=== PATIENT | female | born 1950 | race Caucasian/White ===

== ENCOUNTER 2019-12-05 09:27 | Day surgery (SDC) | payer OTHER ==
[~2019-12-05 09:27] MED LIST: LEVSOD75 PO
--- NOTE | 2019-12-05 12:52 | NUR ---
Discharge instructions reviewed with patient. Patient verbalizes understanding. Copy given to patient to take home. RIGHT SIDE LUNG BX SITE C/D/I W/BANDAIDE IN PLACE. PT DENIES PAIN, JUST STATES SHE CAN TELL A LITTLE "TWINGE" WITH DEEP BREATH AT BX SITE BUT IT HAS UNCHANGED DURING RECOVERY STAY. PT HERE. Discharged via wheelchair to private car for ride home.
== END 2019-12-05 12:54 | disposition home or self-care (01) ==
LOC: CT 09:27
DX: C34.31 Malignant neoplasm of lower lobe, right bronchus or lung (principal); F17.210 Nicotine dependence, cigarettes, uncomplicated; I95.89 Other hypotension; L57.0 Actinic keratosis; E06.3 Autoimmune thyroiditis; E03.8 Other specified hypothyroidism; E78.2 Mixed hyperlipidemia; E78.00 Pure hypercholesterolemia, unspecified; Z79.899 Other long term (current) drug therapy
CPT/HCPCS: 32405; 77012; 88305

== ENCOUNTER 2019-12-26 10:24 | Day surgery (SDC) | payer OTHER | END 2019-12-26 13:12 | disposition home or self-care (01) | LOC: ORSCSDS 10:24 | PROC: 0DBH8ZX Excision of Cecum, Via Natural or Artificial Opening Endoscopic, Diagnostic (ICD-10-PCS; principal; 2019-12-26) | PROC: 0DBN8ZX Excision of Sigmoid Colon, Via Natural or Artificial Opening Endoscopic, Diagnostic (ICD-10-PCS; principal; 2019-12-26) | PROC: 0DBL8ZX Excision of Transverse Colon, Via Natural or Artificial Opening Endoscopic, Diagnostic (ICD-10-PCS; principal; 2019-12-26) | DX: R93.5 Abnormal findings on diagnostic imaging of other abdominal regions, including retroperitoneum (principal); D49.0 Neoplasm of unspecified behavior of digestive system; D12.0 Benign neoplasm of cecum; D12.3 Benign neoplasm of transverse colon; D12.5 Benign neoplasm of sigmoid colon; K63.89 Other specified diseases of intestine; K57.30 Diverticulosis of large intestine without perforation or abscess without bleeding; F17.210 Nicotine dependence, cigarettes, uncomplicated; E03.9 Hypothyroidism, unspecified; Z79.899 Other long term (current) drug therapy; Z85.118 Personal history of other malignant neoplasm of bronchus and lung ==

== ENCOUNTER → 2020-07-02 | Outpatient (CLI) | payer OTHER | END | disposition home or self-care (01) | LOC: LAB SHORT 14:33 | DX: C34.90 Malignant neoplasm of unspecified part of unspecified bronchus or lung (principal) | CPT/HCPCS: 83690 ==

== ENCOUNTER 2020-07-26 20:07 | Inpatient (IN) | payer OTHER, MEDICARE ==
[~2020-07-26] VITALS: Ht 157.5 cm; Wt 71.0 kg
[~2020-07-26 20:07] MED LIST changes: +EUTHYROX50 MC1 PO; +ONDA4ODT MM; +Prednisone10 MG PO
[2020-07-26 21:08] LABS: Hematocrit 46.1 % (33.0-51.0); Hemoglobin 15.9 g/dL (11.5-16.0); LYMPHOCYTES ABSOLUTE AUTO 0.94 K/mm3 (0.84-5.20); LYMPHOCYTES PERCENT AUTO 8 % (21-46); MONOCYTES ABSOLUTE AUTO 1.04 K/mm3 (0.16-1.47); MONOCYTES PERCENT AUTO 9 % (4-13); Mean Corpuscular HGB 31.5 pg (26.0-34.0); Mean Corpuscular HGB Conc 34.5 g/dL (31.5-36.5); Mean Corpuscular Volume 92 fL (80-100); Mean Platelet Volume 10.1 fL (9.1-12.4); Platelet Count 300 K/mm3 (150-400); RDW Coefficient Variation 12.8 % (11.7-14.2); RDW Standard Deviation 42.4 fL (35.1-46.3); Red Blood Cell Count 5.04 M/mm3 (3.80-5.20); White Blood Cell Count 11.83 K/mm3 (4.00-11.30)
[2020-07-26 21:09] LABS: BASOPHILS ABSOLUTE AUTO 0.03 K/mm3 (0.00-0.23); BASOPHILS PERCENT AUTO 0 % (0-2); EOSINOPHILS ABSOLUTE AUTO 0.01 K/mm3 (0.00-0.68); EOSINOPHILS PERCENT AUTO 0 % (0-6); IMMATURE GRAN ABSOLUTE AUTO 0.09 K/mm3 (0.00-0.10); IMMATURE GRAN PERCENT AUTO 1 % (0-1); NEUTROPHILS ABSOLUTE AUTO 9.72 K/mm3 (1.96-9.15); NEUTROPHILS PERCENT AUTO 82 % (41-73)
[2020-07-26 21:25] LABS: BAND PERCENT MAN 39 % (0-8); BASOPHILS ABSOLUTE MAN 0.11 K/mm3 (0.00-0.23); BASOPHILS PERCENT MAN 1 % (0-2); EOSINOPHILS PERCENT MAN 0 % (0-6); LYMPHOCYTES ABSOLUTE MAN 0.94 K/mm3 (0.84-5.20); LYMPHOCYTES PERCENT MAN 8 % (21-46); METAMYELOCYTE ABSOLUTE MAN 0.23 K/mm3 (0.00-0.00); METAMYELOCYTE PERCENT MAN 2 % (0-0); MONOCYTES ABSOLUTE MAN 0.82 K/mm3 (0.16-1.47); MONOCYTES PERCENT MAN 7 % (4-13); SEG NEUTROPHILS PERCENT MAN 43 % (41-73); TOTAL CELLS COUNTED 100
[2020-07-26 21:26] LABS: Alanine Aminotransfer (ALT/SGP 29 U/L (12-78); Albumin, Blood 3.2 g/dL (3.4-5.0); Albumin/Globulin Ratio 0.8 (0.8-1.8); Alk Phos 69 U/L (50-136); Anion Gap 6 mmol/L (6-16); Aspartate Aminotrans (AST/SGOT 27 U/L (12-37); Blood Urea Nitrogen 13 mg/dL (8-24); Bun/Creatinine Ratio 14.8 (12.0-20.0); CO2, Blood 26 mmol/L (21-32); Chloride, Blood 93 mmol/L (98-108); Creatinine, Blood 0.88 mg/dL (0.40-1.00); Glomerular Filtration Rate >60 (60-); Glucose, Blood 102 mg/dL (70-99); Potassium, Blood 3.5 mmol/L (3.5-5.5); Sodium, Blood 125 mmol/L (136-145); Total Protein, Blood 7.2 g/dL (6.4-8.2)
[2020-07-26 23:15] LABS: Magnesium, Blood 1.9 mg/dL (1.6-2.4)
[2020-07-26] MEDS ORDERED: antifungal (23:27)
[2020-07-26] MEDS ORDERED: FLUC200 PO (23:29)
[2020-07-26] MEDS ORDERED: IMODIUM A-D2 M1 PO (23:31)
[2020-07-27 01:18] LABS: Source, Urine Clean Catch
[2020-07-27 01:21] LABS: Appearance, Urine Clear (Clear); Blood, Urine 4+ (Neg); Color, Urine Amber (P-Yellow); Glucose Qualitative, Urine Neg (Neg); Ketones, Urine 4+ (Neg); Leukocyte Esterase, Urine 2+ (Neg); Nitrite, Urine Neg (Neg); Protein, Urine 2+ (Neg); Specific Gravity, Urine 1.025 (1.003-1.022); Urobilinogen, Urine 1+ (Normal)
[2020-07-27 01:26] LABS: Bilirubin, Urine 1+ (Neg)
[2020-07-27 01:27] LABS: Bacteria Mod /hpf; Red Blood Cells, Urine 0-2 /hpf (0-2); Squamous Epithelial Cells Few /hpf (Few)
[2020-07-27 01:28] LABS: Amorphous Light (0-Heavy); Mucus Heavy (0-Heavy)
[2020-07-27 03:02] LABS: Adenovirus F 40/41 Not Detected (NOT DETECT); Astrovirus Not Detected (NOT DETECT); Campylobacter Sp Not Detected (NOT DETECT); Cryptosporidium Not Detected (NOT DETECT); Cyclospora Cayetanensis Not Detected (NOT DETECT); E. Coli O157 Not Detected (NOT DETECT); Entamoeba Histolytica Not Detected (NOT DETECT); Enteroaggregative E. coli-EAEC Not Detected (NOT DETECT); Enteropathogenic E. coli-EPEC Not Detected (NOT DETECT); Enterotoxigenic E. coli-ETEC Not Detected (NOT DETECT); Giardia Lamblia Not Detected (NOT DETECT); Norovirus GI/GII Not Detected (NOT DETECT); Plesiomonas Shigelloides Not Detected (NOT DETECT); Rotavirus A Not Detected (NOT DETECT); Salmonella Sp Not Detected (NOT DETECT); Sapovirus Not Detected (NOT DETECT); Shiga Toxin-prod E. coli-STEC Not Detected (NOT DETECT); Shigella/Enteroin E. coli-EIEC Not Detected (NOT DETECT); Vibrio Cholerae Not Detected (NOT DETECT); Vibrio Sp Not Detected (NOT DETECT); Yersinia Enterocolitica Not Detected (NOT DETECT)
[2020-07-27 05:18] LABS: Hemoglobin 15.2 g/dL (11.5-16.0); Mean Corpuscular HGB 31.5 pg (26.0-34.0); Mean Corpuscular HGB Conc 34.5 g/dL (31.5-36.5); Mean Corpuscular Volume 91 fL (80-100); Mean Platelet Volume 10.1 fL (9.1-12.4); Platelet Count 283 K/mm3 (150-400); RDW Coefficient Variation 12.8 % (11.7-14.2); RDW Standard Deviation 42.6 fL (35.1-46.3); Red Blood Cell Count 4.82 M/mm3 (3.80-5.20); White Blood Cell Count 10.47 K/mm3 (4.00-11.30)
--- NOTE | 2020-07-27 05:47 | NUR ---
SHIFT SUMMARY PATIENT ALERT AND ORIENTED. HAD NO COMPLAINTS OF PAIN OR SHORTNESS OF BREATH. MEDICATED PER EMAR FOR DIARRHEA. PATIENT IS ABLE TO SAFELY SELF AMBULATE IN HER ROOM. IV PATENT AND INFUSING. BED IN LOWEST POSITION WITH WHEELS LOCKED. CALL LIGHT WITHIN REACH. REPORT GIVEN TO ONCOMING RN.
[2020-07-27 05:48] LABS: BAND PERCENT MAN 31 % (0-8); BASOPHILS PERCENT MAN 0 % (0-2); EOSINOPHILS PERCENT MAN 1 % (0-6); LYMPHOCYTES ABSOLUTE MAN 0.94 K/mm3 (0.84-5.20); LYMPHOCYTES PERCENT MAN 9 % (21-46); MONOCYTES ABSOLUTE MAN 0.41 K/mm3 (0.16-1.47); MONOCYTES PERCENT MAN 4 % (4-13); SEG NEUTROPHILS PERCENT MAN 55 % (41-73); TOTAL CELLS COUNTED 100
[2020-07-27 05:56] LABS: Alanine Aminotransfer (ALT/SGP 24 U/L (12-78); Albumin/Globulin Ratio 0.9 (0.8-1.8); Alk Phos 62 U/L (50-136); Anion Gap 9 mmol/L (6-16); Aspartate Aminotrans (AST/SGOT 16 U/L (12-37); Bilirubin, Total 0.9 mg/dL (0.1-1.0); Blood Urea Nitrogen 13 mg/dL (8-24); Bun/Creatinine Ratio 17.9 (12.0-20.0); CO2, Blood 23 mmol/L (21-32); Calcium, Blood 7.9 mg/dL (8.5-10.1); Chloride, Blood 93 mmol/L (98-108); Creatinine, Blood 0.73 mg/dL (0.40-1.00); Globulin, Blood 3.5 g/dL (2.2-4.0); Glomerular Filtration Rate >60 (60-); Glucose, Blood 90 mg/dL (70-99); Potassium, Blood 3.4 mmol/L (3.5-5.5); Sodium, Blood 125 mmol/L (136-145); Total Protein, Blood 6.5 g/dL (6.4-8.2)
[2020-07-27] MEDS ORDERED: EUTHYROX50 MC1 PO (06:15)
--- NOTE | 2020-07-27 08:22 | NUR ---
CALLED DR CABRERA PT CURRENTLY HAS A [employer] RUNNING, PT WAS NOT TOLLERATING THE RATE AND SO IT WAS REDUCED TO A TOLLERABLE LEVEL FOR HER. LAST LABS WERE DRAWN AT 0450 THE CURRENT 20MEQ RIDER WAS STARTED AT 0415. ORDER RECIEVED TO HOLD THE NEWLY ORDERED [employer].
[2020-07-27 16:08] LABS: Albumin, Blood 3.2 g/dL (3.4-5.0); Anion Gap 9 mmol/L (6-16); Blood Urea Nitrogen 14 mg/dL (8-24); Bun/Creatinine Ratio 20.7 (12.0-20.0); CO2, Blood 24 mmol/L (21-32); Calcium, Blood 8.2 mg/dL (8.5-10.1); Chloride, Blood 96 mmol/L (98-108); Creatinine, Blood 0.68 mg/dL (0.40-1.00); Glomerular Filtration Rate >60 (60-); Glucose, Blood 110 mg/dL (70-99); Phosphorus, Blood 2.8 mg/dL (2.5-4.9); Potassium, Blood 3.6 mmol/L (3.5-5.5); Sodium, Blood 129 mmol/L (136-145)
--- NOTE | 2020-07-27 19:49 | NUR ---
shift summary- pt alert, oriented and independent in the room. pt has had frequent loose watery stools, clear liquid. Pt started on iv steroids this morning and stated this evening that though she is still going to the bathroom frequently she is going smaller amounts of stool. Pt has denied pain t/o the shift. She did state that she was feeling very irritable with the stools and the steroids. iv in the ac was possitional and causing her to become more aggitated so hot car charger lizeth placed a new one that is not possitional. pt has denied nausea t/o the shift. Passed all on in bedside report to night rn. No s&s of distress noted at the time of shift change.
--- NOTE | 2020-07-28 05:59 | NUR ---
SHIFT SUMMARY PATIENT ALERT AND ORIENTED. HAD NO COMPLAINTS OF PAIN OR SHORTNESS OF BREATH. PATIENT REPORTS THAT SHE HAS HAD NO RELIEF OR SLOWING OF HER DIARRHEA. SHE IS NOT ABLE TO GET MUCH SLEEP A RESULT. IV PATENT AND INFUSING. BED IN LOWEST POSITION WITH WHEELS LOCKED. CALL LIGHT WITHIN REACH. REPORT GIVEN TO ONCOMING RN.
[2020-07-28 06:23] LABS: Albumin, Blood 3.1 g/dL (3.4-5.0); Anion Gap 10 mmol/L (6-16); Blood Urea Nitrogen 15 mg/dL (8-24); Bun/Creatinine Ratio 20.8 (12.0-20.0); CO2, Blood 21 mmol/L (21-32); Calcium, Blood 8.1 mg/dL (8.5-10.1); Chloride, Blood 96 mmol/L (98-108); Creatinine, Blood 0.72 mg/dL (0.40-1.00); Glomerular Filtration Rate >60 (60-); Glucose, Blood 123 mg/dL (70-99); Phosphorus, Blood 2.7 mg/dL (2.5-4.9); Potassium, Blood 3.2 mmol/L (3.5-5.5); Sodium, Blood 127 mmol/L (136-145)
--- NOTE | 2020-07-28 16:54 | NUR ---
SHIFT SUMMMARY PT IS AOX4. PT DENIES PAIN, N/V, SOB. PT HAD ABOUT 10+ DIARRHEA BM'S THIS SHIFT. PT RECEIVING IV HYDRATION. PT IS INDEPENDENT IN ROOM. PT TELE DC'D THIS SHIFT. APPETITE IS GOOD. PT'S VISITED THIS CHANDA. PLAN IS TO MONITOR DIARRHEA AND ELECTROLYTES. PT HAD NO PROCEDURES THIS SHIFT. PT IS IN BED, CALL LIGHT IN REACH, BED IN LOW POSITION.
[2020-07-28 19:07] LABS: Albumin, Blood 2.9 g/dL (3.4-5.0); Anion Gap 8 mmol/L (6-16); Blood Urea Nitrogen 12 mg/dL (8-24); Bun/Creatinine Ratio 17.8 (12.0-20.0); CO2, Blood 21 mmol/L (21-32); Calcium, Blood 8.1 mg/dL (8.5-10.1); Chloride, Blood 102 mmol/L (98-108); Creatinine, Blood 0.68 mg/dL (0.40-1.00); Glomerular Filtration Rate >60 (60-); Glucose, Blood 142 mg/dL (70-99); Phosphorus, Blood 1.6 mg/dL (2.5-4.9); Potassium, Blood 2.9 mmol/L (3.5-5.5); Sodium, Blood 131 mmol/L (136-145)
--- NOTE | 2020-07-29 04:08 | NUR ---
SHIFT SUMMARY ASSUMED CARE OF PT AT 1900. PT IS A/OX4. HEART SOUNDS REGULAR, LUNG SOUNDS HAVE CRACKLES AT THE BASES. PT ON 2L NC. PT IS INDEPENDENT TO BATHROOM. PT RECEIVED LOMOTAL BEFORE BED AND PT REPORTING BEING ABLE TO URINATE WITHOUT HAVING DIARRHEA. NO ACUTE EVENTS. CALL LIGHT IN REACH, BED IN LOWEST POSITON.
[2020-07-29 05:06] LABS: BASOPHILS ABSOLUTE AUTO 0.07 K/mm3 (0.00-0.23); BASOPHILS PERCENT AUTO 1 % (0-2); EOSINOPHILS PERCENT AUTO 0 % (0-6); Hematocrit 40.2 % (33.0-51.0); Hemoglobin 14.1 g/dL (11.5-16.0); IMMATURE GRAN ABSOLUTE AUTO 0.24 K/mm3 (0.00-0.10); IMMATURE GRAN PERCENT AUTO 2 % (0-1); LYMPHOCYTES PERCENT AUTO 7 % (21-46); MONOCYTES ABSOLUTE AUTO 0.97 K/mm3 (0.16-1.47); MONOCYTES PERCENT AUTO 7 % (4-13); Mean Corpuscular HGB 32.1 pg (26.0-34.0); Mean Corpuscular HGB Conc 35.1 g/dL (31.5-36.5); Mean Corpuscular Volume 92 fL (80-100); Mean Platelet Volume 10.5 fL (9.1-12.4); NEUTROPHILS ABSOLUTE AUTO 12.59 K/mm3 (1.96-9.15); NEUTROPHILS PERCENT AUTO 85 % (41-73); Platelet Count 275 K/mm3 (150-400); RDW Coefficient Variation 12.8 % (11.7-14.2); RDW Standard Deviation 42.9 fL (35.1-46.3); Red Blood Cell Count 4.39 M/mm3 (3.80-5.20); White Blood Cell Count 14.87 K/mm3 (4.00-11.30)
[2020-07-29 05:22] LABS: Albumin, Blood 2.8 g/dL (3.4-5.0); Anion Gap 5 mmol/L (6-16); Blood Urea Nitrogen 11 mg/dL (8-24); Bun/Creatinine Ratio 14.8 (12.0-20.0); CO2, Blood 22 mmol/L (21-32); Calcium, Blood 7.8 mg/dL (8.5-10.1); Chloride, Blood 104 mmol/L (98-108); Creatinine, Blood 0.74 mg/dL (0.40-1.00); Glomerular Filtration Rate >60 (60-); Glucose, Blood 113 mg/dL (70-99); Phosphorus, Blood 1.8 mg/dL (2.5-4.9); Potassium, Blood 3.7 mmol/L (3.5-5.5); Sodium, Blood 131 mmol/L (136-145)
--- NOTE | 2020-07-29 18:34 | NUR ---
SHIFT SUMMARY PT HAS HAD NO DIARRHEA THIS SHIFT. PT HAD COMPLAINTS OF INDIGESTION THIS AFTERNOON. TUMS WERE ORDERED PER REQUEST AND PT REPORTS FEELING BETTER AFTER. NO COMPLAINTS OF NAUSEA OR PAIN. PT HAS HAD A GOOD APPETITE MOST OF THE SHIFT. THIS EVENING SHE REPORTS FEELING "BLOATED" AND WASN'T TOO HUNGRY. NO ACUTE CHANGES THIS SHIFT. WILL CONTINUE TO MONITOR AND REPORT TO ONCOMING RN. CALL LIGHT IN REACH.
[2020-07-30 05:14] LABS: BASOPHILS ABSOLUTE AUTO 0.05 K/mm3 (0.00-0.23); BASOPHILS PERCENT AUTO 0 % (0-2); EOSINOPHILS PERCENT AUTO 0 % (0-6); Hematocrit 40.6 % (33.0-51.0); Hemoglobin 14.2 g/dL (11.5-16.0); IMMATURE GRAN ABSOLUTE AUTO 0.23 K/mm3 (0.00-0.10); IMMATURE GRAN PERCENT AUTO 2 % (0-1); LYMPHOCYTES ABSOLUTE AUTO 0.94 K/mm3 (0.84-5.20); LYMPHOCYTES PERCENT AUTO 7 % (21-46); MONOCYTES ABSOLUTE AUTO 1.33 K/mm3 (0.16-1.47); MONOCYTES PERCENT AUTO 10 % (4-13); Mean Corpuscular HGB 31.6 pg (26.0-34.0); Mean Corpuscular Volume 90 fL (80-100); Mean Platelet Volume 10.2 fL (9.1-12.4); NEUTROPHILS ABSOLUTE AUTO 10.43 K/mm3 (1.96-9.15); NEUTROPHILS PERCENT AUTO 80 % (41-73); Platelet Count 282 K/mm3 (150-400); RDW Coefficient Variation 12.6 % (11.7-14.2); RDW Standard Deviation 41.8 fL (35.1-46.3); Red Blood Cell Count 4.49 M/mm3 (3.80-5.20); White Blood Cell Count 12.98 K/mm3 (4.00-11.30)
--- NOTE | 2020-07-30 05:15 | NUR ---
PATIENT SLEPT WELL AFTER RECEIVING HALF DOSE OF SIMETHICONE FOR BLOATING AND GAS. NO BOWEL MOVEMENTS SINCE 07/28 EVENING SHIFT WHEN PATIENT RECEIVED LOMOTIL TO TREAT HER DIARRHEA. NO COMPLAINTS OF PAIN OR DISCOMFORT OTHER THAN THE GAS MENTIONED ABOVE. ИВАН IS FRUSTRATED THAT NOW HER CANCER TREATMENT HAS BEEN POSTPONED FOR A WHILE TO MAKE CERTAIN SHE IS OVER THIS GI AILMENT.
[2020-07-30 05:32] LABS: Anion Gap 5 mmol/L (6-16); Blood Urea Nitrogen 10 mg/dL (8-24); Bun/Creatinine Ratio 14.4 (12.0-20.0); CO2, Blood 26 mmol/L (21-32); Chloride, Blood 99 mmol/L (98-108); Creatinine, Blood 0.69 mg/dL (0.40-1.00); Glomerular Filtration Rate >60 (60-); Glucose, Blood 112 mg/dL (70-99); Potassium, Blood 3.4 mmol/L (3.5-5.5); Sodium, Blood 130 mmol/L (136-145)
--- NOTE | 2020-07-30 12:20 | NUR ---
STS HAVING MULTIPLE SOFT STOOLS BUT DOES NOT WISH ANY IMODIUM
--- NOTE | 2020-07-30 15:17 | NUR ---
TALKED TO DR FERRER ABOUT BRAT DIET. PATIENT DOES NOT LIKE APPLESAUCE AND GETS INDIGECTION FROM BANANAS. OK TO ORDER REG DIET W/DRY TOAST AND WHITE RICE AND NO SPICEY FOODS OR CONDIMENTS.
[2020-07-30 15:59] LABS: Anion Gap 7 mmol/L (6-16); Blood Urea Nitrogen 12 mg/dL (8-24); Bun/Creatinine Ratio 18.3 (12.0-20.0); CO2, Blood 25 mmol/L (21-32); Calcium, Blood 8.1 mg/dL (8.5-10.1); Chloride, Blood 96 mmol/L (98-108); Creatinine, Blood 0.66 mg/dL (0.40-1.00); Glomerular Filtration Rate >60 (60-); Glucose, Blood 127 mg/dL (70-99); Potassium, Blood 3.4 mmol/L (3.5-5.5); Sodium, Blood 128 mmol/L (136-145)
--- NOTE | 2020-07-30 16:04 | NUR ---
ADVISED POTASSIUM 3.4 , NOT CHANGED FROM THIS AM. ORDERED POTASSIUM 60 MG P.O. ONCE.
--- NOTE | 2020-07-30 18:55 | NUR ---
ASSUMED CARE RECEIVED REPORT FROM VICKY Velasquez RN. PT UP TO BATHROOM, IN NO ACUTE DISTRESS. NO ACUTE NEEDS ASSESSED AT THIS TIME. CALL LIGHT IN REACH
--- NOTE | 2020-07-31 05:34 | NUR ---
CLAY PIGEON SETTER SUMMARY PT RESTING, IN NO ACUTE DISTRESS. VS REVIEWED,WNL. PT HAS SLEPT THROUGH MUCH OF THE NIGHT, REPORTED DIARRHEA X1, OTHERWISE PASSED FLATUS. STATES SHE'S FEELING MUCH BETTER THIS AM. NO OTHER ACUTE CHANGES TO REPORT OVERNIGHT. NO ACUTE NEEDS ASSESSED AT THIS TIME. CALL LIGHT, POSSESSIONS IN REACH. WILL CONTINUE TO PROVIDE CARE UNTIL REPORT GIVEN TO ONCOMING RN.
[2020-07-31 06:08] LABS: BASOPHILS ABSOLUTE AUTO 0.06 K/mm3 (0.00-0.23); BASOPHILS PERCENT AUTO 0 % (0-2); EOSINOPHILS ABSOLUTE AUTO 0.01 K/mm3 (0.00-0.68); EOSINOPHILS PERCENT AUTO 0 % (0-6); Hematocrit 43.2 % (33.0-51.0); Hemoglobin 15.7 g/dL (11.5-16.0); IMMATURE GRAN ABSOLUTE AUTO 0.26 K/mm3 (0.00-0.10); IMMATURE GRAN PERCENT AUTO 2 % (0-1); LYMPHOCYTES ABSOLUTE AUTO 1.63 K/mm3 (0.84-5.20); LYMPHOCYTES PERCENT AUTO 11 % (21-46); MONOCYTES ABSOLUTE AUTO 1.72 K/mm3 (0.16-1.47); MONOCYTES PERCENT AUTO 11 % (4-13); Mean Corpuscular HGB 31.8 pg (26.0-34.0); Mean Corpuscular HGB Conc 36.3 g/dL (31.5-36.5); Mean Corpuscular Volume 88 fL (80-100); NEUTROPHILS ABSOLUTE AUTO 11.76 K/mm3 (1.96-9.15); NEUTROPHILS PERCENT AUTO 76 % (41-73); Platelet Count 301 K/mm3 (150-400); RDW Coefficient Variation 12.8 % (11.7-14.2); RDW Standard Deviation 41.2 fL (35.1-46.3); Red Blood Cell Count 4.93 M/mm3 (3.80-5.20); White Blood Cell Count 15.44 K/mm3 (4.00-11.30)
[2020-07-31 06:57] LABS: Albumin, Blood 3.1 g/dL (3.4-5.0); Anion Gap 6 mmol/L (6-16); Blood Urea Nitrogen 10 mg/dL (8-24); Bun/Creatinine Ratio 16.3 (12.0-20.0); CO2, Blood 23 mmol/L (21-32); Calcium, Blood 8.2 mg/dL (8.5-10.1); Chloride, Blood 99 mmol/L (98-108); Creatinine, Blood 0.61 mg/dL (0.40-1.00); Glomerular Filtration Rate >60 (60-); Glucose, Blood 95 mg/dL (70-99); Phosphorus, Blood 1.6 mg/dL (2.5-4.9); Potassium, Blood 4.1 mmol/L (3.5-5.5); Sodium, Blood 128 mmol/L (136-145)
--- NOTE | 2020-07-31 08:22 | NUR ---
DR. BOYD ADVISED NO IV ASSESS W/RN X 2 UNABLE TO OBTAIN ASSESS. PER MD SHE WILL ORDER P.O. NACL. PER PATIENT ALWAYS HAS LOW SODIUM BUT UNABLE TO TELL RN ANY NUMBERS. AWAITING ORDERS
--- NOTE | 2020-07-31 13:33 | NUR ---
sts. feels much better and feels like diarrhea has slowed down. eatting, no nausea. refuses any anti diarrhea meds.
--- NOTE | 2020-07-31 15:18 | NUR ---
ALERT. ORIENTED. INDEPENDENT IN ROOM. NO IV ASSESS. STS HAS NOT HAD ANY MORE DIARRHEA SINCE TAKING LOMOTIL AROUND 0830 THIS AM. HAS REFUSED BANANA FLAKES SHE FEELS THEN "WE WON'T KNOW WHICH MED HELPED." TO CONSULT. NO ACUTE CHANGES. WCTM
--- NOTE | 2020-07-31 19:00 | NUR ---
ASSUMED CARE RECEIVED REPORT FROM VICKY Garrett RN. PT ASLEEP, RESPS E/U. NO ACUTE DISTRESS NOTED. CALL LIGHT AND POSSESSIONS IN REACH.
--- NOTE | 2020-07-31 19:00 | NUR ---
ASSUMED CARE RECEIVED REPORT FROM LARRY KEYES. PT ASLEEP, RESPS E/U. NO ACUTE NEEDS ASSESSED. CALL LIGHT AND POSSESSIONS IN REACH.
[2020-08-01 05:29] LABS: Hematocrit 43.9 % (33.0-51.0); Hemoglobin 15.4 g/dL (11.5-16.0); Mean Corpuscular HGB 31.6 pg (26.0-34.0); Mean Corpuscular HGB Conc 35.1 g/dL (31.5-36.5); Mean Corpuscular Volume 90 fL (80-100); Mean Platelet Volume 10.1 fL (9.1-12.4); Platelet Count 271 K/mm3 (150-400); RDW Coefficient Variation 12.8 % (11.7-14.2); RDW Standard Deviation 42.1 fL (35.1-46.3); Red Blood Cell Count 4.87 M/mm3 (3.80-5.20); White Blood Cell Count 16.16 K/mm3 (4.00-11.30)
--- NOTE | 2020-08-01 05:39 | NUR ---
DITCH REPAIRER SUMMARY PT HAS HAD AN UNEVENTFUL NIGHT. SLEPT THROUGHOUT, VOICED C/O DIARRHEA X1, NO FURTHER COMPLAINTS AT THIS TIME; CONTINUES PASSING FLATUS; BS +. DECLINED PRN MEDICATIONS. TOLERATED BANATROL POWDER WELL. GOOD APPETITE. VS REVIEWED,WNL. PT DENIES NEEDS AT THIS TIME. CALL LIGHT, POSSESSIONS IN REACH, WILL CONTINUE TO PROVIDE CARE NEEDED UNTIL REPORT GIVEN TO ONCOMING RN.
[2020-08-01 05:57] LABS: Albumin, Blood 2.9 g/dL (3.4-5.0); Anion Gap 5 mmol/L (6-16); Blood Urea Nitrogen 16 mg/dL (8-24); CO2, Blood 27 mmol/L (21-32); Calcium, Blood 8.1 mg/dL (8.5-10.1); Chloride, Blood 96 mmol/L (98-108); Creatinine, Blood 0.64 mg/dL (0.40-1.00); Glomerular Filtration Rate >60 (60-); Glucose, Blood 99 mg/dL (70-99); Phosphorus, Blood 2.3 mg/dL (2.5-4.9); Potassium, Blood 3.5 mmol/L (3.5-5.5); Sodium, Blood 128 mmol/L (136-145)
--- NOTE | 2020-08-01 18:13 | NUR ---
THIS RN ASSESSED THE PT. THIS RN REVIEWED & AGREES WITH OCCUPATIONAL HEALTH AND SAFETY MANAGER DOCUEMNTATION FOR THIS SHIFT.
--- NOTE | 2020-08-01 18:42 | NUR ---
SHIFT SUMMARY PATIENT ALERT AND ORIENTATED. PT INDEPENDENT IN ROOM. NO IV ACCESS. PT SEEMS TO UNDERSTAND PLAN OF CARE BETTER. NO ACUTE CHANGES DURING SHIFT. PATIENT HAS HAD 7-8 STOOLS THROUGHOUT THE DAY WITH STOOL FORMING. PT STATES "BECOMING MORE PASTY" APPEARS IN BETTER MOOD. VITAL SIGNS REVIEWED. CALL LIGHT WITHIN REACH.
[2020-08-02 05:54] LABS: BASOPHILS ABSOLUTE AUTO 0.04 K/mm3 (0.00-0.23); BASOPHILS PERCENT AUTO 0 % (0-2); EOSINOPHILS PERCENT AUTO 0 % (0-6); Hematocrit 43.7 % (33.0-51.0); Hemoglobin 15.1 g/dL (11.5-16.0); IMMATURE GRAN ABSOLUTE AUTO 0.28 K/mm3 (0.00-0.10); IMMATURE GRAN PERCENT AUTO 2 % (0-1); LYMPHOCYTES ABSOLUTE AUTO 1.02 K/mm3 (0.84-5.20); LYMPHOCYTES PERCENT AUTO 6 % (21-46); MONOCYTES ABSOLUTE AUTO 0.87 K/mm3 (0.16-1.47); MONOCYTES PERCENT AUTO 5 % (4-13); Mean Corpuscular HGB 31.3 pg (26.0-34.0); Mean Corpuscular HGB Conc 34.6 g/dL (31.5-36.5); Mean Corpuscular Volume 91 fL (80-100); Mean Platelet Volume 10.5 fL (9.1-12.4); NEUTROPHILS ABSOLUTE AUTO 14.17 K/mm3 (1.96-9.15); NEUTROPHILS PERCENT AUTO 87 % (41-73); Platelet Count 285 K/mm3 (150-400); RDW Coefficient Variation 12.8 % (11.7-14.2); RDW Standard Deviation 42.4 fL (35.1-46.3); Red Blood Cell Count 4.83 M/mm3 (3.80-5.20); White Blood Cell Count 16.38 K/mm3 (4.00-11.30)
[2020-08-02 06:26] LABS: Albumin, Blood 2.9 g/dL (3.4-5.0); Anion Gap 7 mmol/L (6-16); Blood Urea Nitrogen 23 mg/dL (8-24); Bun/Creatinine Ratio 33.7 (12.0-20.0); CO2, Blood 27 mmol/L (21-32); Calcium, Blood 8.1 mg/dL (8.5-10.1); Chloride, Blood 96 mmol/L (98-108); Creatinine, Blood 0.68 mg/dL (0.40-1.00); Glomerular Filtration Rate >60 (60-); Glucose, Blood 108 mg/dL (70-99); Phosphorus, Blood 2.9 mg/dL (2.5-4.9); Potassium, Blood 3.6 mmol/L (3.5-5.5); Sodium, Blood 130 mmol/L (136-145)
--- NOTE | 2020-08-02 06:33 | NUR ---
SHIFT SUMMARY PT IS A 70 Y/O FEMALE, ADMITTED FOR DIARRHEA. SHE IS A&O X 4, INDEPENDENT IN THE ROOM. PT REPORTED NO BMS DURING THE NIGHT, AND NO C/O ABD PAIN OR NAUSEA. VITAL SIGNS STABLE. NO ACUTE CHANGES IN PT CONDITION NOTED DURING THE NIGHT. WILL CONTINUE TO MONITOR AND TREAT PER EMAR UNTIL HAND OFF TO DAY SHIFT RN.
[2020-08-02] MEDS ORDERED: DIPATR PO (10:41)
[2020-08-02] MEDS ORDERED: BANATROL PLUS1 EAC1 PO (10:41)
--- NOTE | 2020-08-02 11:36 | NUR ---
DISCHARGE SUMMARY ИВАН LEFT BY WC TO HER RIDE DOWNSTAIRS. SHE IS EAGER TO GO, HASN'T HAD ANY BMS THIS SHIFT OR OVER SPORTS TRAINER. NO PIV PRESENT, MEDS FAXED TO PHARMACY, NO NEED FOR PHYSICAL SCRIPT OF LOMOTIL, I CALLED IT IN TO PHARMACY. STICKER PUT AT FRONT FOR CM TO MAKE F/U WITH DR MENJIVAR. PAPERWORK REVIEWED
== END 2020-08-02 11:43 | disposition home or self-care (01) | DRG 394 ==
LOC: ER 20:07 → MEDS 23:52
PROVIDERS: Emergency Medicine; Family Medicine; Internal Medicine; Physician Assistant; Student in an Organized Health Care Education/Training Program; ADMIT Internal Medicine
DX: K52.1 Toxic gastroenteritis and colitis (principal); C78.7 Secondary malignant neoplasm of liver and intrahepatic bile duct; E87.1 Hypo-osmolality and hyponatremia; C34.90 Malignant neoplasm of unspecified part of unspecified bronchus or lung; B37.0 Candidal stomatitis; R11.2 Nausea with vomiting, unspecified; T45.1X5A Adverse effect of antineoplastic and immunosuppressive drugs, initial encounter; R82.71 Bacteriuria; E86.0 Dehydration; E87.6 Hypokalemia; E03.9 Hypothyroidism, unspecified; R53.1 Weakness; Z90.49 Acquired absence of other specified parts of digestive tract
CPT/HCPCS: 0097U; 36415; 80048; 80053; 80069; 81001; 83690; 83735; 83880; 84132; 85025; 85027; 87077; 87086; 87186; 96372; 96374; 96375; 96376; 99284; 99284-25; A9270; G0378; J1650; J2405; J2930; J3475; J3480; J7030; J7512

== ENCOUNTER 2020-10-18 13:55 | Day surgery (SDC) | payer OTHER ==
[~2020-10-18 13:55] MED LIST changes: +BANATROL PLUS1 EAC1 PO; +DIPATR PO; +FLUC200 PO; +IMODIUM A-D2 M1 PO; +antifungal
[2020-10-18] MEDS ORDERED: OMEP20ER PO (14:29)
[2020-10-18] MEDS ORDERED: SULTRIDS PO (14:29)
[2020-10-18] MEDS ORDERED: POTA10T PO (14:30)
[2020-10-18] MEDS ORDERED: LEVFLO500 PO (14:31)
== END 2020-10-18 15:15 | disposition home or self-care (01) ==
LOC: ATC 13:55
DX: C34.31 Malignant neoplasm of lower lobe, right bronchus or lung (principal); K59.00 Constipation, unspecified; E86.0 Dehydration; C78.7 Secondary malignant neoplasm of liver and intrahepatic bile duct; F17.200 Nicotine dependence, unspecified, uncomplicated; I10 Essential (primary) hypertension
CPT/HCPCS: 96360; J7030

== ENCOUNTER → 2020-10-22 | Outpatient (CLI) | payer OTHER ==
[~2020-10-22] MED LIST changes: +Acetaminophen650 M1 PO; +Colace100 MG PO; +GLIP5 PO; +LEVFLO500 PO; +LIQUITEARS; +OMEP20ER PO; +POTA10T PO; +PRED20 PO; +Potassium Chlo20 ME1 PO; +SODCHL1 PO; +SULFAMETHOXAZO1 EAC1 UD; +SULTRIDS PO; +VISBIOME PROBIOTIC
[2020-10-22 17:32] LABS: Hematocrit 36.7 % (33.0-51.0); Hemoglobin 12.5 g/dL (11.5-16.0); Mean Corpuscular HGB 31.6 pg (26.0-34.0); Mean Corpuscular HGB Conc 34.1 g/dL (31.5-36.5); Mean Corpuscular Volume 93 fL (80-100); Mean Platelet Volume 10.1 fL (9.1-12.4); Platelet Count 199 K/mm3 (150-400); RDW Coefficient Variation 14.1 % (11.7-14.2); RDW Standard Deviation 47.4 fL (35.1-46.3); Red Blood Cell Count 3.95 M/mm3 (3.80-5.20); White Blood Cell Count 7.63 K/mm3 (4.00-11.30)
[2020-10-22 18:06] LABS: Alanine Aminotransfer (ALT/SGP 133 U/L (12-78); Albumin, Blood 2.5 g/dL (3.4-5.0); Albumin/Globulin Ratio 0.9 (0.8-1.8); Alk Phos 67 U/L (50-136); Anion Gap 2 mmol/L (6-16); Aspartate Aminotrans (AST/SGOT 35 U/L (12-37); Bilirubin, Total 0.8 mg/dL (0.1-1.0); Blood Urea Nitrogen 11 mg/dL (8-24); Bun/Creatinine Ratio 20.4 (12.0-20.0); CO2, Blood 28 mmol/L (21-32); Calcium, Blood 7.5 mg/dL (8.5-10.1); Chloride, Blood 103 mmol/L (98-108); Creatinine, Blood 0.54 mg/dL (0.40-1.00); Globulin, Blood 2.8 g/dL (2.2-4.0); Glomerular Filtration Rate >60 (60-); Glucose, Blood 164 mg/dL (70-99); Magnesium, Blood 1.9 mg/dL (1.6-2.4); Potassium, Blood 4.1 mmol/L (3.5-5.5); Sodium, Blood 133 mmol/L (136-145); Total Protein, Blood 5.3 g/dL (6.4-8.2)
[2020-10-22 18:24] LABS: BAND PERCENT MAN 30 % (0-8); BASOPHILS PERCENT MAN 0 % (0-2); EOSINOPHILS PERCENT MAN 0 % (0-6); LYMPHOCYTES % ATYPICAL MANUAL 1 % (0-0); LYMPHOCYTES ABSOLUTE MAN 0.45 K/mm3 (0.84-5.20); LYMPHOCYTES PERCENT MAN 5 % (21-46); METAMYELOCYTE ABSOLUTE MAN 0.15 K/mm3 (0.00-0.00); METAMYELOCYTE PERCENT MAN 2 % (0-0); MONOCYTES PERCENT MAN 0 % (4-13); NEUTROPHILS ABSOLUTE MAN 7.01 K/mm3 (1.96-9.15); SEG NEUTROPHILS PERCENT MAN 62 % (41-73); TOTAL CELLS COUNTED 100
== END | disposition home or self-care (01) ==
LOC: LAB SHORT 14:40 → LAB 14:40
PROVIDERS: Dermatology
DX: L98.9 Disorder of the skin and subcutaneous tissue, unspecified (principal); C34.31 Malignant neoplasm of lower lobe, right bronchus or lung
CPT/HCPCS: 80053; 83735; 85025; 88305

== ENCOUNTER 2020-10-23 16:12 | Inpatient (IN) | payer OTHER, MEDICARE ==
[~2020-10-23] VITALS: Ht 157.5 cm; Wt 71.1 kg
[~2020-10-23 16:12] MED LIST changes: -Acetaminophen650 M1 PO; -Colace100 MG PO; -GLIP5 PO; -LIQUITEARS; -PRED20 PO; -Potassium Chlo20 ME1 PO; -SODCHL1 PO; -SULFAMETHOXAZO1 EAC1 UD; -VISBIOME PROBIOTIC
[2020-10-23 16:46] LABS: BASOPHILS ABSOLUTE AUTO 0.02 K/mm3 (0.00-0.23); BASOPHILS PERCENT AUTO 0 % (0-2); EOSINOPHILS PERCENT AUTO 0 % (0-6); Hematocrit 36.9 % (33.0-51.0); IMMATURE GRAN ABSOLUTE AUTO 0.22 K/mm3 (0.00-0.10); IMMATURE GRAN PERCENT AUTO 3 % (0-1); LYMPHOCYTES PERCENT AUTO 12 % (21-46); MONOCYTES ABSOLUTE AUTO 0.28 K/mm3 (0.16-1.47); MONOCYTES PERCENT AUTO 3 % (4-13); Mean Corpuscular HGB 32.2 pg (26.0-34.0); Mean Corpuscular HGB Conc 35.2 g/dL (31.5-36.5); Mean Corpuscular Volume 91 fL (80-100); Mean Platelet Volume 10.1 fL (9.1-12.4); NEUTROPHILS ABSOLUTE AUTO 6.73 K/mm3 (1.96-9.15); NEUTROPHILS PERCENT AUTO 82 % (41-73); Platelet Count 239 K/mm3 (150-400); RDW Coefficient Variation 14.1 % (11.7-14.2); RDW Standard Deviation 46.4 fL (35.1-46.3); Red Blood Cell Count 4.04 M/mm3 (3.80-5.20); White Blood Cell Count 8.25 K/mm3 (4.00-11.30)
[2020-10-23 17:04] LABS: Alanine Aminotransfer (ALT/SGP 146 U/L (12-78); Albumin, Blood 2.7 g/dL (3.4-5.0); Albumin/Globulin Ratio 0.9 (0.8-1.8); Alk Phos 74 U/L (50-136); Anion Gap 7 mmol/L (6-16); Aspartate Aminotrans (AST/SGOT 38 U/L (12-37); Bilirubin, Total 0.6 mg/dL (0.1-1.0); Blood Urea Nitrogen 10 mg/dL (8-24); Bun/Creatinine Ratio 19.5 (12.0-20.0); CO2, Blood 26 mmol/L (21-32); Chloride, Blood 97 mmol/L (98-108); Creatinine, Blood 0.51 mg/dL (0.40-1.00); Glomerular Filtration Rate >60 (60-); Glucose, Blood 308 mg/dL (70-99); Potassium, Blood 4.5 mmol/L (3.5-5.5); Sodium, Blood 130 mmol/L (136-145); Total Protein, Blood 5.7 g/dL (6.4-8.2)
[2020-10-23] MEDS ORDERED: SULFAMETHOXAZO1 EAC1 UD (19:57)
[2020-10-23] MEDS ORDERED: Potassium Chlo20 ME1 PO (21:47)
[2020-10-23] MEDS ORDERED: PRED20 PO (21:48)
[2020-10-23] MEDS ORDERED: SULTRIDS PO (21:53)
[2020-10-24 05:06] LABS: BASOPHILS ABSOLUTE AUTO 0.05 K/mm3 (0.00-0.23); BASOPHILS PERCENT AUTO 1 % (0-2); EOSINOPHILS ABSOLUTE AUTO 0.01 K/mm3 (0.00-0.68); EOSINOPHILS PERCENT AUTO 0 % (0-6); Hematocrit 37.1 % (33.0-51.0); Hemoglobin 12.9 g/dL (11.5-16.0); IMMATURE GRAN ABSOLUTE AUTO 0.41 K/mm3 (0.00-0.10); IMMATURE GRAN PERCENT AUTO 5 % (0-1); LYMPHOCYTES ABSOLUTE AUTO 1.86 K/mm3 (0.84-5.20); LYMPHOCYTES PERCENT AUTO 21 % (21-46); MONOCYTES ABSOLUTE AUTO 0.67 K/mm3 (0.16-1.47); MONOCYTES PERCENT AUTO 8 % (4-13); Mean Corpuscular HGB 31.7 pg (26.0-34.0); Mean Corpuscular HGB Conc 34.8 g/dL (31.5-36.5); Mean Corpuscular Volume 91 fL (80-100); Mean Platelet Volume 9.7 fL (9.1-12.4); NEUTROPHILS ABSOLUTE AUTO 5.91 K/mm3 (1.96-9.15); NEUTROPHILS PERCENT AUTO 66 % (41-73); NRBC ABSOLUTE 0.02 K/mm3 (0.00-0.02); NRBC Auto 0.2 /100 WBC (0.0-0.2); Platelet Count 228 K/mm3 (150-400); RDW Standard Deviation 46.7 fL (35.1-46.3); Red Blood Cell Count 4.07 M/mm3 (3.80-5.20); White Blood Cell Count 8.91 K/mm3 (4.00-11.30)
[2020-10-24 05:57] LABS: Anion Gap 4 mmol/L (6-16); Blood Urea Nitrogen 9 mg/dL (8-24); Bun/Creatinine Ratio 15.1 (12.0-20.0); CO2, Blood 30 mmol/L (21-32); Calcium, Blood 7.8 mg/dL (8.5-10.1); Chloride, Blood 97 mmol/L (98-108); Glomerular Filtration Rate >60 (60-); Glucose, Blood 127 mg/dL (70-99); Potassium, Blood 3.9 mmol/L (3.5-5.5); Sodium, Blood 131 mmol/L (136-145)
--- NOTE | 2020-10-24 06:08 | NUR ---
ACUPUNCTURE PHYSICIAN SUMMARY NEW ADMIT FROM THE ED. PT ADMITTED FOR POSS SJS. RASHES COVERING CHEST AND BACK AND SPREADING DOWN ABD AND LOWER BACK WELL SOME ON DAMIEN AREA AND LEGS. AREA COVERED IN BACITRACIN OINTMENT AND XEROFORM DRESSINGS PLACED ON MORE CONCENTRATED SCABBED AREAS. PT DENIES PAIN OF THE AREAS UNLESS FIRM PRESSURE IS PLACED ON THEM. PT TO HAVE CONSULTS WITH DR MENJIVAR ONCOLOGY AND DR Kelly MENJIVAR IN DERMATOLOGY TODAY. PT SEES BOTH OF THOSE PHYSICIANS NORMALLY. VSS, WILL CONTINUE TO MONITOR.
--- NOTE | 2020-10-24 13:56 | NUR ---
Spoke with Primary RN Angela and discussed case. Pt's code status is currently DNR with miter saw operator reporting Pt may be reconsidering her code status. Pt resting in bed upon arrival. Pt denies pain, dyspnea, and nausea at this time. Pt reports being and having 2 adult children who live out of the area. Pt reports her has dementia and relies on her for support. Pt reports her sister is suppotive. Engaged in discussion regarding her code status. Pt became anxious as conversation continued. Pt reports she wants CPR. When discussing wishes for intubation Pt became mildly agitated and states I can't talk about this now and states I'll let you know when the time comes. Provided brief summary of wishes and Pt confirms her wishes to be full code including intubation. Pt appears to have a low level of understanding, anxiety may have been contributing towards her understanding. Called and spoke with Dr Lacey. Relayed Pt's wishes for full code. Changed Pt's code status to Full Librarian per V/O from Dr Lacey. Palliative Care will remain available.
--- NOTE | 2020-10-24 18:34 | NUR ---
Pt is alert, oriented this shift. No concerns, pt denies pain and other symptoms. Body rash is not itchy or painful, she states that it is just uncomfortable with the bandages. Dressing changes completed today. Will remain available.
[2020-10-25 05:16] LABS: Hematocrit 35.6 % (33.0-51.0); Hemoglobin 12.3 g/dL (11.5-16.0); Mean Corpuscular HGB 32.2 pg (26.0-34.0); Mean Corpuscular HGB Conc 34.6 g/dL (31.5-36.5); Mean Corpuscular Volume 93 fL (80-100); Mean Platelet Volume 9.8 fL (9.1-12.4); Platelet Count 221 K/mm3 (150-400); RDW Standard Deviation 47.5 fL (35.1-46.3); Red Blood Cell Count 3.82 M/mm3 (3.80-5.20); White Blood Cell Count 5.97 K/mm3 (4.00-11.30)
[2020-10-25 05:36] LABS: BAND PERCENT MAN 8 % (0-8); BASOPHILS PERCENT MAN 0 % (0-2); EOSINOPHILS PERCENT MAN 0 % (0-6); LYMPHOCYTES ABSOLUTE MAN 0.71 K/mm3 (0.84-5.20); LYMPHOCYTES PERCENT MAN 12 % (21-46); MONOCYTES ABSOLUTE MAN 0.05 K/mm3 (0.16-1.47); MONOCYTES PERCENT MAN 1 % (4-13); MYELOCYTE ABSOLUTE MAN 0.11 K/mm3 (0.00-0.00); MYELOCYTE PERCENT MAN 2 % (0-0); NEUTROPHILS ABSOLUTE MAN 5.07 K/mm3 (1.96-9.15); SEG NEUTROPHILS PERCENT MAN 77 % (41-73); TOTAL CELLS COUNTED 100
[2020-10-25 05:46] LABS: Alanine Aminotransfer (ALT/SGP 155 U/L (12-78); Albumin, Blood 2.4 g/dL (3.4-5.0); Alk Phos 67 U/L (50-136); Anion Gap 3 mmol/L (6-16); Aspartate Aminotrans (AST/SGOT 39 U/L (12-37); Bilirubin, Total 0.7 mg/dL (0.1-1.0); Blood Urea Nitrogen 8 mg/dL (8-24); CO2, Blood 30 mmol/L (21-32); Calcium, Blood 7.8 mg/dL (8.5-10.1); Chloride, Blood 94 mmol/L (98-108); Creatinine, Blood 0.57 mg/dL (0.40-1.00); Glomerular Filtration Rate >60 (60-); Glucose, Blood 202 mg/dL (70-99); Phosphorus, Blood 2.8 mg/dL (2.5-4.9); Potassium, Blood 4.6 mmol/L (3.5-5.5); Sodium, Blood 127 mmol/L (136-145)
[2020-10-25 05:57] LABS: Albumin/Globulin Ratio 0.4 (0.8-1.8); Globulin, Blood 5.8 g/dL (2.2-4.0)
--- NOTE | 2020-10-25 06:08 | NUR ---
SHIFT SUMMARY- PT. A&O, INDEPENDENT IN ROOM. HAD NO COMPLAINTS OF PAIN OR DISCOMFORT DURING THE NIGHT. PERFORMED DRESSING CHANGE TO CHEST AND BACK AREA. APPLIED BACITRACIN OINTMENT PER EMAR. COVERED WITH XEROFORM AND ABD PAD. SECURED WITH COBAN FOR COMFORT PER PT. REQUEST. TOLERATED WELL. PT. REPORTED HAVING A RESTFUL NIGHT, NO ACUTE DISTRESS NOTED. VSS. CALL LIGHT WITHIN REACH AND SIDE RAILS UPX2. WILL CONT TO MONITOR.
[2020-10-25 06:13] LABS: Total Protein, Blood 8.2 g/dL (6.4-8.2)
--- NOTE | 2020-10-25 08:39 | NUR ---
Artificial tears Patient c/o of dry eyes. Received V.O. from Dr. Weber to give Artificial Tears QID PRN for dry eyes. EMAR updated.
--- NOTE | 2020-10-25 18:43 | NUR ---
RN SHIFT SUMMARY: PT A/O X3. PT DENIES PAIN. 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 PT DENIES PAIN, ITCHING FROM RASH. DRESSINGS IN PLACE TO PROTECT SKIN. PT TOLERATED IGG IV THERAPY WELL TODAY W/OUT ADVERSE EVENTS. PT HAD SON VISIT TODAY AND DINNER FROM [employer]. PT IND WITH AMBULATION UNLESS IV INFUSIONS RUNNING. NO ACUTE CONCERNS THIS SHIFT.
[2020-10-26 05:30] LABS: Alanine Aminotransfer (ALT/SGP 207 U/L (12-78); Albumin, Blood 2.4 g/dL (3.4-5.0); Albumin/Globulin Ratio 0.3 (0.8-1.8); Alk Phos 69 U/L (50-136); Anion Gap 3 mmol/L (6-16); Aspartate Aminotrans (AST/SGOT 67 U/L (12-37); Bilirubin, Total 1.3 mg/dL (0.1-1.0); Blood Urea Nitrogen 10 mg/dL (8-24); CO2, Blood 30 mmol/L (21-32); Calcium, Blood 8.1 mg/dL (8.5-10.1); Chloride, Blood 93 mmol/L (98-108); Creatinine, Blood 0.59 mg/dL (0.40-1.00); Globulin, Blood 7.5 g/dL (2.2-4.0); Glomerular Filtration Rate >60 (60-); Glucose, Blood 170 mg/dL (70-99); Sodium, Blood 126 mmol/L (136-145); Total Protein, Blood 9.9 g/dL (6.4-8.2)
--- NOTE | 2020-10-26 05:53 | NUR ---
SHIFT SUMMARY- NO ACUTE EVENTS OVERNIGHT. DRESSING CHANGE TO CHEST AND BACK DONE. APPLIED XEROFORM AND COVERED WITH ABD PAD. PT. HAD NO COMPLAINTS T/O THE NIGHT. SLEPT T/O THE NIGHT, VSS. CALL LIGHT WITHIN REACH AND SIDE RAILS UPX2. WILL CONT TO MONITOR.
--- NOTE | 2020-10-26 13:51 | NUR ---
RN NOTE: RASH CHECKED FOR S/S OF INFECTION. NO SIGNS OF INCREASED REDNESS, SWELLING OR DRAINAGE. SKIN IS WARM TO TOUCH AT BASELINE. DRESSING IN PLACE IS CDI. PT DOES NOT REPORT INCREASED DISCOMFORT FROM RASH. SOME AREAS HAVE SKIN PEELING.
--- NOTE | 2020-10-26 18:38 | NUR ---
RN SHIFT SUMMARY: PT A/O X 3. IND IN ROOM. PT FINISHED IGG TREATMENT WITH NO ADVERSE EVENTS TODAY. PT HAS BEEN REFUSING STOOL SOFTENERS BUT HAS REPORTED SHE WILL TAKE TONIGHT IF NO BM BY BEDTIME. NO OTHER ACUTE CONCERNS AT THIS TIME. RASH ON TRUN CONTINUES.
[2020-10-27 05:20] LABS: Hematocrit 32.5 % (33.0-51.0); Hemoglobin 11.5 g/dL (11.5-16.0); Mean Corpuscular HGB 33.3 pg (26.0-34.0); Mean Corpuscular HGB Conc 35.4 g/dL (31.5-36.5); Mean Corpuscular Volume 94 fL (80-100); Mean Platelet Volume 9.9 fL (9.1-12.4); NRBC ABSOLUTE 0.13 K/mm3 (0.00-0.02); Platelet Count 244 K/mm3 (150-400); RDW Standard Deviation 49.8 fL (35.1-46.3); Red Blood Cell Count 3.45 M/mm3 (3.80-5.20)
[2020-10-27 05:56] LABS: BAND PERCENT MAN 7 % (0-8); BASOPHILS PERCENT MAN 0 % (0-2); EOSINOPHILS PERCENT MAN 0 % (0-6); LYMPHOCYTES ABSOLUTE MAN 1.45 K/mm3 (0.84-5.20); LYMPHOCYTES PERCENT MAN 11 % (21-46); METAMYELOCYTE ABSOLUTE MAN 0.66 K/mm3 (0.00-0.00); METAMYELOCYTE PERCENT MAN 5 % (0-0); MONOCYTES ABSOLUTE MAN 0.52 K/mm3 (0.16-1.47); MONOCYTES PERCENT MAN 4 % (4-13); NEUTROPHILS ABSOLUTE MAN 10.56 K/mm3 (1.96-9.15); SEG NEUTROPHILS PERCENT MAN 73 % (41-73); TOTAL CELLS COUNTED 100
--- NOTE | 2020-10-27 05:58 | NUR ---
SHIFT SUMMARY- PT. HAD COMPLAINTS OF LOW BACK PAIN DURING THE NIGHT. MEDICATED WITH TYLENOL PER EMAR AND APPLIED HEATING PAD. PT. STATED WAS NOT HOT ENOUGH AND REFUSED TO USE. ALSO PER PT. REQUEST REMOVED PRIOR DRESSING FROM CHEST AND BACK AREA, NO CHANGES NOTED TO RASH/SORES. PT. RESTED QUIETLY IN BED T/O THE NIGHT, NO APPARENT DISTRESS NOTED, VSS. CALL LIGHT WITHIN REACH AND SIDE RAILS UPX2. WILL CONT TO MONITOR.
[2020-10-27 05:59] LABS: Alanine Aminotransfer (ALT/SGP 310 U/L (12-78); Albumin, Blood 2.2 g/dL (3.4-5.0); Albumin/Globulin Ratio 0.3 (0.8-1.8); Alk Phos 66 U/L (50-136); Anion Gap 4 mmol/L (6-16); Aspartate Aminotrans (AST/SGOT 123 U/L (12-37); Bilirubin, Total 2.1 mg/dL (0.1-1.0); Blood Urea Nitrogen 13 mg/dL (8-24); Bun/Creatinine Ratio 24.8 (12.0-20.0); CO2, Blood 27 mmol/L (21-32); Calcium, Blood 7.9 mg/dL (8.5-10.1); Chloride, Blood 93 mmol/L (98-108); Creatinine, Blood 0.53 mg/dL (0.40-1.00); Globulin, Blood 8.7 g/dL (2.2-4.0); Glomerular Filtration Rate >60 (60-); Glucose, Blood 212 mg/dL (70-99); Potassium, Blood 4.4 mmol/L (3.5-5.5); Sodium, Blood 124 mmol/L (136-145); Total Protein, Blood 10.9 g/dL (6.4-8.2)
[2020-10-27] MEDS ORDERED: Acetaminophen650 M1 PO (16:49)
[2020-10-27] MEDS ORDERED: Colace100 MG PO (16:49)
[2020-10-27] MEDS ORDERED: GLIP5 PO (16:50)
[2020-10-27] MEDS ORDERED: LEVFLO500 PO (16:50)
[2020-10-27] MEDS ORDERED: SODCHL1 PO (16:51)
[2020-10-27] MEDS ORDERED: VISBIOME PROBIOTIC (16:53)
[2020-10-27] MEDS ORDERED: LIQUITEARS (16:54)
--- NOTE | 2020-10-27 17:43 | NUR ---
1710: DISCHARGED HOME WITH ALL PERSONAL BELONGINGS IN PATIENT POSSESSION. TEACHBACK METHOD UTILIZED AND ALL QUESTIONS ANSWERED.
== END 2020-10-27 17:13 | DRG 596 ==
LOC: ER 16:12 → MEDS 23:19 → ENPENDDIS 10-27 16:05 → MEDS 10-27 17:13
PROVIDERS: Family Medicine; Internal Medicine; Physician Assistant; Student in an Organized Health Care Education/Training Program; ADMIT Internal Medicine
DX: L51.3 Stevens-Johnson syndrome-toxic epidermal necrolysis overlap syndrome (principal); C34.90 Malignant neoplasm of unspecified part of unspecified bronchus or lung; E87.1 Hypo-osmolality and hyponatremia; C78.7 Secondary malignant neoplasm of liver and intrahepatic bile duct; T45.1X5A Adverse effect of antineoplastic and immunosuppressive drugs, initial encounter; R19.7 Diarrhea, unspecified; Z71.6 Tobacco abuse counseling; E03.9 Hypothyroidism, unspecified; E86.0 Dehydration; E11.65 Type 2 diabetes mellitus with hyperglycemia; F17.210 Nicotine dependence, cigarettes, uncomplicated; Z79.52 Long term (current) use of systemic steroids; Z79.899 Other long term (current) drug therapy; Z90.49 Acquired absence of other specified parts of digestive tract; Z98.890 Other specified postprocedural states
CPT/HCPCS: 16025; 36415; 76705; 80048; 80053; 82947; 83036; 83735; 84100; 84295; 84443; 85025; 85651; 99285-25; A9270; J0692; J1568; J1650; J2930

== ENCOUNTER → 2020-11-20 | Outpatient (CLI) | payer OTHER ==
[~2020-11-20] MED LIST changes: +Acetaminophen650 M1 PO; +Colace100 MG PO; +GLIP5 PO; +LIQUITEARS; +PRED20 PO; +Potassium Chlo20 ME1 PO; +SODCHL1 PO; +SULFAMETHOXAZO1 EAC1 UD; +VISBIOME PROBIOTIC
== END ==
LOC: LAB SHORT 07:55 → LAB 07:55
DX: L98.9 Disorder of the skin and subcutaneous tissue, unspecified (principal); I96 Gangrene, not elsewhere classified; Z88.8 Allergy status to other drugs, medicaments and biological substances
CPT/HCPCS: 88305

== ENCOUNTER → 2020-11-28 | Outpatient (CLI) | payer OTHER ==
[2020-11-28 16:37] LABS: BASOPHILS ABSOLUTE AUTO 0.03 K/mm3 (0.00-0.23); BASOPHILS PERCENT AUTO 0 % (0-2); EOSINOPHILS ABSOLUTE AUTO 0.01 K/mm3 (0.00-0.68); EOSINOPHILS PERCENT AUTO 0 % (0-6); Hematocrit 35.8 % (33.0-51.0); Hemoglobin 12.1 g/dL (11.5-16.0); IMMATURE GRAN ABSOLUTE AUTO 0.06 K/mm3 (0.00-0.10); IMMATURE GRAN PERCENT AUTO 1 % (0-1); LYMPHOCYTES ABSOLUTE AUTO 1.88 K/mm3 (0.84-5.20); LYMPHOCYTES PERCENT AUTO 22 % (21-46); MONOCYTES ABSOLUTE AUTO 0.73 K/mm3 (0.16-1.47); MONOCYTES PERCENT AUTO 9 % (4-13); Mean Corpuscular HGB Conc 33.8 g/dL (31.5-36.5); Mean Corpuscular Volume 107 fL (80-100); Mean Platelet Volume 9.3 fL (9.1-12.4); NEUTROPHILS PERCENT AUTO 68 % (41-73); NRBC ABSOLUTE 0.02 K/mm3 (0.00-0.02); NRBC Auto 0.2 /100 WBC (0.0-0.2); Platelet Count 312 K/mm3 (150-400); RDW Coefficient Variation 19.6 % (11.7-14.2); RDW Standard Deviation 75.4 fL (35.1-46.3); Red Blood Cell Count 3.36 M/mm3 (3.80-5.20); White Blood Cell Count 8.51 K/mm3 (4.00-11.30)
[2020-11-28 16:50] LABS: Alanine Aminotransfer (ALT/SGP 44 U/L (12-78); Albumin, Blood 2.9 g/dL (3.4-5.0); Albumin/Globulin Ratio 0.5 (0.8-1.8); Alk Phos 98 U/L (40-126); Anion Gap 4 mmol/L (6-16); Aspartate Aminotrans (AST/SGOT 37 U/L (12-37); Blood Urea Nitrogen 11 mg/dL (8-24); Bun/Creatinine Ratio 13.9 (12.0-20.0); CO2, Blood 30 mmol/L (21-32); Calcium, Blood 8.4 mg/dL (8.5-10.1); Chloride, Blood 95 mmol/L (98-108); Creatinine, Blood 0.79 mg/dL (0.40-1.00); Globulin, Blood 6.4 g/dL (2.2-4.0); Glomerular Filtration Rate >60 (60-); Glucose, Blood 97 mg/dL (70-99); Potassium, Blood 4.2 mmol/L (3.5-5.5); Sodium, Blood 129 mmol/L (136-145); Total Protein, Blood 9.3 g/dL (6.4-8.2); Troponin I 0.029 ng/mL (0.000-0.040)
== END | disposition home or self-care (01) ==
LOC: LAB SHORT 16:32 → LAB 16:32
PROVIDERS: Physician Assistant
DX: R07.81 Pleurodynia (principal)
CPT/HCPCS: 80053; 84484; 85025; 85379